=== PATIENT | female | born 1960 | race Caucasian/White ===

== ENCOUNTER 2017-07-09 12:12 | Emergency (ER) | payer OTHER | END 2017-07-09 15:55 | disposition home or self-care (01) | LOC: FTE 12:12 | DX: J06.9 Acute upper respiratory infection, unspecified (principal); I10 Essential (primary) hypertension | CPT/HCPCS: 99284; Z7502 ==

== ENCOUNTER 2017-07-18 11:37 | Emergency (ER) | payer OTHER ==
[2017-07-18] MEDS: KETOROLAC 30 MG INJ IM (15:23)
== END 2017-07-18 16:09 | disposition home or self-care (01) ==
LOC: FTE 11:37
DX: M79.671 Pain in right foot (principal); M79.672 Pain in left foot; I10 Essential (primary) hypertension
CPT/HCPCS: 96372; 99284-25

== ENCOUNTER 2017-08-17 10:01 | Emergency (ER) | payer OTHER | END 2017-08-17 10:40 | disposition home or self-care (01) | LOC: FTE 10:01 | DX: H01.003 Unspecified blepharitis right eye, unspecified eyelid (principal); I10 Essential (primary) hypertension | CPT/HCPCS: 99284 ==

== ENCOUNTER 2018-01-08 08:44 | Emergency (ER) | payer OTHER | END 2018-01-08 09:20 | disposition home or self-care (01) | LOC: FTE 08:44 | DX: L03.032 Cellulitis of left toe (principal); B35.3 Tinea pedis; R40.2412 Glasgow coma scale score 13-15, at arrival to emergency department; I10 Essential (primary) hypertension | CPT/HCPCS: 99283; Z7502 ==